=== PATIENT | male | born 1990 | race Two or more races ===

== ENCOUNTER 2019-08-24 04:20 | Emergency (ER) | payer BC, OTHER ==
[~2019-08-24] VITALS: Ht 167.6 cm; Wt 122.5 kg
[2019-08-24] MEDS ORDERED: cefTRIAXone 1GM/50ML D5W 50 ML IV ONE ×2 (07:45)
[2019-08-24] MEDS ORDERED: KETOROLAC TROMETH 30 MG/ML 1ML VIAL IV ONE (07:45)
[2019-08-24 08:33] LABS: Basophils # (auto) 0.1 10 ^3/uL (0-0.2); Basophils % (auto) 0.8 % (0.0-2.0); Eosinophils # (auto) 0.3 10 ^3/uL (0-0.8); Eosinophils % (auto) 2.8 % (0.0-7.0); Hemoglobin 16.4 g/dL (13.5-17.5); Lymphocytes # (auto) 2.1 10 ^3/uL (0.4-5.4); Mean Corpuscular Hemoglobin 31.2 pg (28.0-32.0); Mean Corpuscular Hgb Conc. 34.1 g/dL (32.0-36.0); Mean Corpuscular Volume 91.5 fL (80.0-100.0); Monocytes # (auto) 0.8 10 ^3/uL (0-1.3); Monocytes % (auto) 6.8 % (0.0-12.0); Neutrophils # (auto) 8.4 10 ^3/uL (1.6-8.6); Neutrophils % (auto) 71.6 % (37.0-80.0); Nucleated Red Blood Cells % 0.1 %; Platelet Count (auto) 206 10^3/uL (140-450); Red Blood Cells 5.25 10^6/uL (4.5-5.90); Red Cell Distribution Width 13.4 % (11.8-14.3); White Blood Cell 11.8 10^3/uL (4.4-10.8)
[2019-08-24] MEDS ORDERED: methylPREDNISolone SOD SUCC 125 MG/2 ML VL IV ONE (08:45)
[2019-08-24 08:48] LABS: Calcium 9.4 mg/dL (8.5-10.1); Potassium 4.4 mmol/L (3.5-5.1)
[2019-08-24 08:51] VITALS: BP 145/90
[2019-08-24 08:53] LABS: BUN/Creatinine Ratio 14.1
== END 2019-08-24 09:03 | disposition home or self-care (01) ==
LOC: ER 04:20
DX: H70.002 Acute mastoiditis without complications, left ear (principal); H66.92 Otitis media, unspecified, left ear
CPT/HCPCS: 36415; 70486; 80048; 85025; 96365; 96375; 99284; J0696; J1885; J2930

== ENCOUNTER 2020-10-30 20:39 | Emergency (ER) | payer BC ==
[~2020-10-30] VITALS: Ht 167.6 cm; Wt 125.2 kg
[2020-10-30] MEDS ORDERED: SODIUM CHLORIDE 0.9% 1,000 ML IV ONE (23:15)
[2020-10-30] MEDS ORDERED: cefTRIAXone 1GM/50ML D5W 50 ML IV ONE (23:15)
[2020-10-30] MEDS ORDERED: KETOROLAC TROMETH 30 MG/ML 1ML VIAL IV ONE (23:15)
[2020-10-30] MEDS ORDERED: methylPREDNISolone SOD SUCC 125 MG/2 ML VL IM ONE (23:15)
[2020-10-31 03:48] VITALS: BP 154/75
== END 2020-10-31 03:54 | disposition home or self-care (01) ==
LOC: ER 20:42
DX: H66.91 Otitis media, unspecified, right ear (principal); H60.91 Unspecified otitis externa, right ear; E66.9 Obesity, unspecified; Z68.41 Body mass index [BMI] 40.0-44.9, adult
CPT/HCPCS: 70486; 96361; 96365; 96366; 96372; 96375; 99284; J0696; J1885; J2930; J7030

== ENCOUNTER 2021-09-21 12:10 | Emergency (ER) | payer BC ==
[~2021-09-21] VITALS: Ht 167.6 cm; Wt 134.6 kg
[2021-09-21 13:10] LABS: Urine Bacteria NONE SEEN /hpf (None Seen); Urine Blood 3+ /uL (Negative); Urine WBC 1110 /hpf (0 - 3)
[2021-09-21 15:37] VITALS: BP 141/92
[2021-09-21] MEDS ORDERED: SULF800T7 PO (16:33)
[2021-09-21] MEDS ORDERED: cefTRIAXone SOD 1,000 MG VL IM ONE (16:45)
== END 2021-09-21 16:40 | disposition home or self-care (01) ==
LOC: ER 12:10
DX: N39.0 Urinary tract infection, site not specified (principal)
CPT/HCPCS: 81001; 96372; 99283; J0696